=== PATIENT | female | born 1960 | race Caucasian/White ===

== ENCOUNTER 2020-03-14 15:35 | Outpatient (CLI) | payer OTHER, SELFPAY ==
--- NOTE | ~2020-03-14 | US_ITS ---
EXAMINATION: US art doppler w ya [facility]OMO EXAM DATE: 03/14/2020 17:11 INDICATION: M79.651 - Pain in right thigh . Hypertension. TECHNIQUE: Segmental pressures and plethysmographic and Doppler waveforms of the brachial and lower e xtremity arteries were obtained. There is no prior study for comparison. FINDINGS: Right and left brachial artery pressures of 163 mm Hg and 158 mm Hg, respectively, are concordant (no rmal difference <= 30 mmHg). The right and left thigh-brachial pressure indices are could not obtain , 1.16, respectively (normal > 1.2). RIGHT LEG: The ankle-brachial index (LORELEI) is 0.94 (normal >= 0.9-1). The great toe-brachial index (TBI) is 0.31 (normal >= 0.65). The lower extremity ratios, segmental pressure gradients as follows; Proximal superficial femoral artery:- Could not obtain ( mmHg). Distal superficial femoral artery: ----- Could not obtain ( mmHg). Popliteal: 1.02 (166 mmHg). Dorsalis pedis: 0.84 (137 mmHg). Posterior tibial: 0.94 (153 mmHg). (Normal gradients <= 20-30 mmHg between adjacent levels on the same leg or the same levels on the two legs). Arterial waveforms are biphasic. LEFT LEG: The ankle-brachial index (LORELEI) is 0.80 (normal >= 0.9-1). The great toe-brachial index (TBI) is 0.32 (normal >= 0.65). The lower extremity ratios, segmental pressure gradients as follows; Proximal superficial femoral artery:- 1.16 (189 mmHg). Distal superficial femoral artery: ----- Could not obtain ( mmHg). Popliteal: 0.89 (145 mmHg). Dorsalis pedis: 0.71 (115 mmHg). Posterior tibial: 0.80 (131 mmHg). (Normal gradients <= 20-30 mmHg between adjacent levels on the same leg or the same levels on the two legs). Arterial waveforms are biphasic common femoral and superfic ial femoral, monophasic below. IMPRESSION: 1. Right ankle-brachial index 0.94, normal. 2. Left ankle-brachial index 0.80, mildly decreased. 3. Moderately decreased toe brachial indices bilaterally. 4. Segmental pressures as above. Reviewed, dictated and finalized at location A. [employer] OPERATOR HELPER
== END 2020-03-14 15:36 | disposition home or self-care (01) ==
LOC: ANHLAB 15:37 → ANHIMG 15:37
PROVIDERS: PCP Emergency Medicine; Visit Provider Emergency Medicine
DX: M79.651 Pain in right thigh (principal); M79.662 Pain in left lower leg
CPT/HCPCS: 93923

== ENCOUNTER 2020-03-15 12:09 | Outpatient (CLI) | payer OTHER, SELFPAY ==
--- NOTE | ~2020-03-15 | US_ITS ---
EXAMINATION:US venous doppler LE BI INDICATION:Right thigh pain TECHNIQUE: Multiple grayscale, color flow and Doppler images of the right lower extremity deep venous systems were obtained and reviewed. COMPARISON:No prior studies for comparison. FINDINGS: The common femoral, superficial femoral and popliteal veins demonstrate normal respiratory variation, augmentation and compressibility. Color flow is also seen within the posterior tibial, pe roneal, greater saphenous and profunda veins. IMPRESSION: 1: No lower extremity deep venous thrombosis. Reviewed, dictated and finalized at location A. UTIVE PRODUCER
== END 2020-03-15 12:10 | disposition home or self-care (01) ==
PROVIDERS: PCP Emergency Medicine; Visit Provider Emergency Medicine
DX: M79.651 Pain in right thigh (principal); M79.652 Pain in left thigh
CPT/HCPCS: 93970